=== PATIENT | female | born 1970 | race Caucasian/White ===

== ENCOUNTER 2020-09-19 00:16 | Outpatient (CLI) | payer BC, SELFPAY ==
[2020-09-19 19:24] LABS: SARS-CoV-2 RNA PCR Negative
== END 2020-09-19 00:17 | disposition home or self-care (01) ==
LOC: ANHCOVIDDT 00:16
PROVIDERS: PCP Internal Medicine; Visit Provider Obstetrics & Gynecology Gynecology
DX: Z01.818 Encounter for other preprocedural examination (principal); Z20.828 Contact with and (suspected) exposure to other viral communicable diseases
CPT/HCPCS: 87635; C9803; U0003

== ENCOUNTER 2020-09-22 00:55 | Day surgery (SDC) | payer BC, SELFPAY ==
[2020-09-22 06:35] VITALS: BP 146/76; PULSE 56; RESP 20; TEMP 36.8; O2SAT 100
[2020-09-22] MEDS: ACETAMINOPHEN 500 MG TABLET 1000 MG PO (06:45)
[2020-09-22] MEDS: LACTATED RINGERS 1,000 ML 30 ML IV CONT (06:46)
--- NOTE | 2020-09-22 06:47 | WPDANESEPPF ---
Anes - Initial Pre Proc Eval Procedure: Operation Date: 09/22/20 07:30 Proposed Procedures p Hysteroscopy with Myosure, Resection of Polyp - Val Addison MD Date/Time: 09/22/20 06:47 Surgeon: Val Addison MD Pre Op Diagnosis: uterine polyp Patient Data Age: 50 Gender: F Height: 5 ft 5 in Weight: 82 kg Allergies Allergy/AdvReac Type Severity Reaction Status Date / Time amoxicillin Allergy Intermediate hives Verified 09/15/20 10:07 oxycodone AdvReac Intermediate Vomiting Verified 09/15/20 09:57 tramadol AdvReac Intermediate Vomiting Verified 09/15/20 09:57 hydrocodone AdvReac Unknown headache Verified 09/15/20 09:56 Home Medications Medication Instructions Recorded Confirmed Type albuterol sulfate [ProAir HFA] 2 puff INHALATION BID 09/15/20 09/15/20 History cholecalciferol (vitamin D3) 25 mcg PO DAILY 09/15/20 09/22/20 History [Vitamin D3] eletriptan 40 mg PO BID PRN 09/15/20 09/22/20 History esomeprazole magnesium [Nexium] 20 mg PO EVERY OTHER DAY 09/15/20 09/22/20 History galcanezumab-gnlm [Emgality 120 mg SUBCUT MONTHLY 09/15/20 09/22/20 History Syringe] levothyroxine 137 mcg PO QAM 09/15/20 09/22/20 History ghmltcqzgsxp-Vi-yeil-minerals 1 tablet PO DAILY 09/15/20 09/22/20 History [Multiple Vitamin, Womens] budesonide-formoterol [Symbicort] 1 inh INHALATION DAILY 09/22/20 09/22/20 History Patient hx anesthesia problems: none Family hx anesthesia problems: none PMFSH Past Medical History Medical History (Updated 09/22/20 @ 06:48 by Jake Crisostomo MD) Asthma GERD (gastroesophageal reflux disease) Family History Family History Mother Family history of mental disorder Depression Family history of migraine headaches Hypertension Family history of malignant neoplasm of breast in first degree relative Sibling Depression Family history of alcoholism Father Hypertension Family history of alcoholism Social History Social History Smoking packs per day: 1.5 Smoking cigarettes per day: 30.0 Years smoked: 11 Smoking pack-years: 16.50 Smoking status: Former smoker Second hand tobacco smoke exposure: No Smoking end date: 04/30/97 Alcohol intake: current Drinks per week: 3 Substance use: never Living arrangements: with family Additional living arrangements comments: Spiritual care concerns: No Anes - Eval Final PreProcedure Day of Procedure 09/22/20 06:47 Patient weight: obese Heart: regular rate and rhythm Lungs: clear to auscultation Airway: Mallampati scale class II Neurological: alert and oriented Last oral intake: >/= 8 hours ASA classification: III Emergent: no Anesthetic plan: proceed Anesthesia type and monitoring: general GIVS and standard monitoring Informed Consent: The patient's anesthetic plan and its attendant risks and benefits were discussed with the patient/family/POA. Questions were solicited and answers provided to the satisfaction of the patient/family/POA.
--- NOTE | 2020-09-22 07:17 | PM.HPGS ---
History of Present Illness History of Present Illness Consent: Risks, benefits, and alternatives have been discussed and questions answered. Patient agrees to proceed with procedure. Chief complaint: uterine polyp Narrative: Liv Nicole is a 50 year old female with heavy cycles since 10/2018. Patient was to have hysteroscopy with biopsy at that time but cancelled procedure and did not respond to letter or phone calls to reschedule. Patient arrived for her well exam on 08/06 and reported continued heavy cycles. Recommended to proceed with hysteroscopy with biopsy. Performed in office and large polyp noted. Unable to remove in office but pieces sent and showed highly atypical endometrium. Recommended to proceed with hysteroscopy with myosure resection of mass in OR. Risks of infection, bleeding, and perforation reviewed. Possible pathology discussed. Agrees to proceed. [facility] Past Medical History Medical History (Updated 09/22/20 @ 07:25 by Val Addison MD) Anxiety Asthma Bunion GERD (gastroesophageal reflux disease) Hypothyroid Infertility Kidney stone Migraines Papillary adenocarcinoma of bladder 2009 Surgical History Surgical History (Updated 09/22/20 @ 07:23 by Val Addison MD) H/O thyroidectomy S/P breast biopsy S/P carpal tunnel release Family History Family History Mother Family history of mental disorder Depression Family history of migraine headaches Hypertension Family history of malignant neoplasm of breast in first degree relative Sibling Depression Family history of alcoholism Father Hypertension Family history of alcoholism Social History Social History Smoking packs per day: 1.5 Smoking cigarettes per day: 30.0 Years smoked: 11 Smoking pack-years: 16.50 Smoking status: Former smoker Second hand tobacco smoke exposure: No Smoking end date: 04/30/97 Alcohol intake: current Drinks per week: 3 Substance use: never Living arrangements: with family Additional living arrangements comments: Spiritual care concerns: No Meds Home Medications and Allergies Home Medications Medication Instructions Recorded Confirmed Type albuterol sulfate [ProAir HFA] 2 puff INHALATION BID 09/15/20 09/15/20 History cholecalciferol (vitamin D3) 25 mcg PO DAILY 09/15/20 09/22/20 History [Vitamin D3] eletriptan 40 mg PO BID PRN 09/15/20 09/22/20 History esomeprazole magnesium [Nexium] 20 mg PO EVERY OTHER DAY 09/15/20 09/22/20 History galcanezumab-gnlm [Emgality 120 mg SUBCUT MONTHLY 09/15/20 09/22/20 History Syringe] levothyroxine 137 mcg PO QAM 09/15/20 09/22/20 History fhfhuguqzlct-Xx-xvpd-minerals 1 tablet PO DAILY 09/15/20 09/22/20 History [Multiple Vitamin, Womens] budesonide-formoterol [Symbicort] 1 inh INHALATION DAILY 09/22/20 09/22/20 History Allergies Allergy/AdvReac Type Severity Reaction Status Date / Time amoxicillin Allergy Intermediate hives Verified 09/22/20 07:12 hydrocodone AdvReac Severe headache Verified 09/22/20 07:13 ketorolac [From Toradol] AdvReac Severe Nausea and Verified 09/22/20 07:13 Vomiting oxycodone AdvReac Intermediate Vomiting Verified 09/22/20 07:12 Exam Const: General: healthy appearing and alert Orientation/consciousness: patient oriented x3 Resp: Effort & Inspection: normal respiratory effort Auscultation: clear to auscultation bilaterally Cardio: Rate: regular rate Rhythm: regular rhythm GI: GI Palp: Yes Soft to palpation, No Tenderness to palpation present (GI) and No Palpable mass present : External Female Exam: normal external appearance Speculum Exam - Vagina: normal appearance of the vagina, normal vaginal discharge and vagina atrophic Speculum Exam - Cervix: normal appearance of the cervix Bimanual exam- vagina & uterus: uterine size normal and consistency normal Bimanu
--- NOTE | 2020-09-22 07:35 | WPDHPUPDATE1 ---
History and Physical Update Update Date/Time: 09/22/20 07:35 History and Physical has been reviewed, including an updated exam of the patient. There are NO changes in the patient's condition. Risks, benefits, and alternatives have been discussed and questions answered. Patient agrees to proceed with procedure.
[2020-09-22 08:12] VITALS: BP 131/68; PULSE 62; RESP 12; O2SAT 98
--- NOTE | 2020-09-22 08:13 | PM.PROC ---
Procedure Note - Detailed Date of procedure: 09/22/20 Pre-op diagnosis: uterine polyp menorrhagia atypical endometrium Post-op diagnosis: same Procedure performed: D&C hysteroscopy with myosure resection of mass Description of procedure: The patient was taken to the operating room and placed under anesthesia in the dorsal lithotomy position. She was prepped and draped in the usual sterile fashion. [place] speculum was placed in the vagina and the cervix is grasped on the anterior lip with a tenaculum. The cervix was injected with 1% lidocaine. The uterus is sounded to 8cm. The cervix is serially dilated to an 8 Hegar. The MyoSure camera is placed with the stated findings. Under direct visualization the mass is removed with the MyoSure device. The camera was removed and the endometrium curetted with a medium sharp curette until a good uterine cry was noted in all areas. All instruments are removed. Patient is taken to recovery in stable condition. Sponge, instrument, and needle counts are correct per the OR staff. Anesthesia: MAC and local Surgeon: Val Addison MD Estimated blood loss (mL): 5 Drains: No Packing: No Pathology: yes (endometrial shavings and curettings) Complications: No immediate complications Condition: stable Disposition: PACU Findings: uterus sounds to 8 cm; polyp appearing mass at fundus filling upper cavity
[2020-09-22] MEDS: fentaNYL CITRATE INJ (*CRX) 100 MCG/2 ML VIAL 25 MCG IV PUSH (08:37)
[2020-09-22 08:40] VITALS: BP 135/65; PULSE 60; RESP 12; O2SAT 99
[2020-09-22] MEDS: IBUPROFEN 400 MG TABLET PO (08:55)
[2020-09-22 09:00] VITALS: BP 157/70; PULSE 56; RESP 12
[2020-09-22 09:40] VITALS: BP 132/72; PULSE 62; RESP 20
== END 2020-09-22 09:44 | disposition home or self-care (01) ==
PROVIDERS: PCP Internal Medicine; Visit Provider Obstetrics & Gynecology Gynecology
PROC: 0U5B8ZZ Destruction of Endometrium, Via Natural or Artificial Opening Endoscopic (ICD-10-PCS; CPT 58563; principal; 2020-09-22 07:30)
DX: C54.1 Malignant neoplasm of endometrium (principal); J45.909 Unspecified asthma, uncomplicated; K21.9 Gastro-esophageal reflux disease without esophagitis; Z87.891 Personal history of nicotine dependence; E66.9 Obesity, unspecified; Z68.30 Body mass index [BMI] 30.0-30.9, adult
CPT/HCPCS: 58558; 88305; A9270; J2250; J2704; J3010; J7030; J7120